=== PATIENT | male | born 1970 | race Caucasian/White ===

== ENCOUNTER 2018-02-06 13:44 | Emergency (ER) | payer BC, SELFPAY ==
[2018-02-06 13:48] VITALS: BP 124/81; PULSE 93; RESP 16; TEMP 36.8; O2SAT 100; BMI 29.7
--- NOTE | 2018-02-06 14:51 | [facility].EDGENADL ---
ED Disposition Clinical Impression: Exposure to chemical irritant Disposition: Home, Self-Care Condition on Discharge: Good Additional Instructions: Maalox as needed for irritation; use Metamucil nightly in juice to stay regular . - Critical Care Critical Care Time: No Attestation: On , the high probability of a clinically significant, sudden or life threatening deterioration of the following system(s) required my full and direct attention, intervention and personal management. The time I documented below is in addition to time spent performing reported procedures but includes the following listed in this critical care notation. Medical Decision Making Vital Signs: 02/06/18 13:48 Temperature 98.2 F Temperature Source Oral Pulse Rate [Right Radial] 93 H Respiratory Rate 16 Blood Pressure [Right Arm] 124/81 Blood Pressure Mean [Right Arm] 95 Blood Pressure Source [Right Arm] Automatic Cuff Blood Pressure Position [Right Arm] Sitting 02 Sat by Pulse Oximetry 100 Oxygen Delivery Method Room Air Orders (Tests/Meds): ED MEDICATIONS Discontinued Medications Generic Name Dose Route Start Last Admin Trade Name Freq PRN Reason Stop Dose Admin Belladonna Alkaloids 60 ml 02/06/18 13:59 02/06/18 14:00 Gi Cocktail 60ml Udc PO 02/06/18 14:00 60 ml ONCE ONE Administration - Clark Inquiry Pt receiving controlled substance: No General Adult HPI - General Chief complaint: Anxiety Stated complaint: drank poision Time Seen by Provider: 02/06/18 14:35 Mode of Arrival: Ambulatory Limitations: No Limitations Description of Symptoms (Recalled from ER Triage Doc. by RN): PT RECEIVED ORAGANO OIL IN MAIL AND HOPED TO UE IT FOR BOWEL HEALTH. PT DRANK TWO DROPPER FULLS OF LIQUID AND THE CHECKS BOTTLE AND REALIZES THAT IT IS ESSENTIAL OIL AND NOT JUST REGULAR OIL. - History of Present Illness HPI narrative: Patient intentionally ingested over the counter oregano oil because he read on the internet it would help with constipation; last BM two days ago; felt anxious and throat was irritated; given GI cocktail PO on arrival and feels fine now. Onset (ago): minute(s) Severity: mild Quality: burning Consistency: constant Treatments prior to arrival: none - Related Data Home Medications Medication Instructions Recorded Confirmed No Known Home Medications [No 02/06/18 02/06/18 Known Home Medications] Allergies Allergy/AdvReac Type Severity Reaction Status Date / Time morphine Allergy Intermediate Rash Verified 02/06/18 13:58 [facility] History - Social History Alcohol Intake: never - Psychiatric History Expresses thoughts of harming self/others: None Suicide Plan Description: No Plan ROS Obtained: Yes All systems reviewed & no additional complaints Physical Exam - General General appearance: alert, in no apparent distress - Head Head exam: atraumatic, normocephalic, normal inspection - Eye Eye exam: Present: normal appearance, PERRL, EOMI - ENT ENT exam: Present: normal oropharynx, mucous membranes moist - Neck Neck exam: Present: normal inspection, full ROM, trachea midline. Absent: meningismus, lymphadenopathy - Chest Chest inspection: Present: normal inspection, symmetric chest wall rise. Absent: tenderness - Respiratory Respiratory exam: Present: normal lung sounds bilaterally. Absent: respiratory distress - Cardiovascular Cardiovascular exam: Present: regular rate, normal rhythm. Absent: JVD - Neurological Exam Neurological exam: Present: alert, oriented X3, CN II-XII intact, normal gait. Absent: motor sensory deficit - Psychiatric Psychiatric exam: Present: normal affect, normal mood - Skin Skin exam: Present: warm, dry, intact, normal color
--- NOTE | 2018-02-06 14:55 | ED_ITS ---
ED Disposition Clinical Impression: Exposure to chemical irritant Disposition: Home, Self-Care Condition on Discharge: Good Additional Instructions: Maalox as needed for irritation; use Metamucil nightly in juice to stay regular . - Critical Care Critical Care Time: No Attestation: On , the high probability of a clinically significant, sudden or life threatening deterioration of the following system(s) required my full and direct attention, intervention and personal management. The time I documented below is in addition to time spent performing reported procedures but includes the following listed in this critical care notation. Medical Decision Making Vital Signs: 02/06/18 13:48 Temperature 98.2 F Temperature Source Oral Pulse Rate [Right Radial] 93 H Respiratory Rate 16 Blood Pressure [Right Arm] 124/81 Blood Pressure Mean [Right Arm] 95 Blood Pressure Source [Right Arm] Automatic Cuff Blood Pressure Position [Right Arm] Sitting 02 Sat by Pulse Oximetry 100 Oxygen Delivery Method Room Air Orders (Tests/Meds): ED MEDICATIONS Discontinued Medications Generic Name Dose Route Start Last Admin Trade Name Freq PRN Reason Stop Dose Admin Belladonna Alkaloids 60 ml 02/06/18 13:59 02/06/18 14:00 Gi Cocktail 60ml Udc PO 02/06/18 14:00 60 ml ONCE ONE Administration - Clark Inquiry Pt receiving controlled substance: No General Adult HPI - General Chief complaint: Anxiety Stated complaint: drank poision Time Seen by Provider: 02/06/18 14:35 Mode of Arrival: Ambulatory Limitations: No Limitations Description of Symptoms (Recalled from ER Triage Doc. by RN): PT RECEIVED ORAGANO OIL IN MAIL AND HOPED TO UE IT FOR BOWEL HEALTH. PT DRANK TWO DROPPER FULLS OF LIQUID AND THE CHECKS BOTTLE AND REALIZES THAT IT IS ESSENTIAL OIL AND NOT JUST REGULAR OIL. - History of Present Illness HPI narrative: Patient intentionally ingested over the counter oregano oil because he read on the internet it would help with constipation; last BM two days ago; felt anxious and throat was irritated; given GI cocktail PO on arrival and feels fine now. Onset (ago): minute(s) Severity: mild Quality: burning Consistency: constant Treatments prior to arrival: none - Related Data Home Medications Medication Instructions Recorded Confirmed No Known Home Medications [No 02/06/18 02/06/18 Known Home Medications] Allergies Allergy/AdvReac Type Severity Reaction Status Date / Time morphine Allergy Intermediate Rash Verified 02/06/18 13:58 [facility] History - Social History Alcohol Intake: never - Psychiatric History Expresses thoughts of harming self/others: None Suicide Plan Description: No Plan ROS Obtained: Yes All systems reviewed & no additional complaints Physical Exam - General General appearance: alert, in no apparent distress - Head Head exam: atraumatic, normocephalic, normal inspection - Eye Eye exam: Present: normal appearance, PERRL, EOMI - ENT ENT exam: Present: normal oropharynx, mucous membranes moist - Neck Neck exam: Present: normal inspection, full ROM, trachea midline. Absent: meningismus, lymphadenopathy - Chest Chest inspection: Present: normal ins
[2018-02-06 15:18] VITALS: BP 135/99; PULSE 77; RESP 18; TEMP 36.6; O2SAT 97
== END 2018-02-06 15:27 | disposition home or self-care (01) ==
PROVIDERS: Emergency Provider Emergency Medicine
DX: Z77.098 Contact with and (suspected) exposure to other hazardous, chiefly nonmedicinal, chemicals (principal); K59.00 Constipation, unspecified; Z88.6 Allergy status to analgesic agent; Y92.009 Unspecified place in unspecified non-institutional (private) residence as the place of occurrence of the external cause
CPT/HCPCS: 99281